=== PATIENT | male | born 1990 | race Caucasian/White ===

== ENCOUNTER 2019-07-04 00:38 | Inpatient (IN) ==
[2019-07-04] MEDS ORDERED: Mag Hydrox/Al Hydrox/Simeth 30 ML UDC PO PRN (00:45)
[2019-07-04] MEDS ORDERED: Ibuprofen 400 MG TABLET PO PRN (00:45)
[2019-07-04] MEDS ORDERED: MOM Conc 10 ML UD.LIQ PO PRN (00:45)
[2019-07-04] MEDS ORDERED: hydrOXYzine pamoate 25 MG CAPSULE PO PRN (00:45)
[2019-07-04] MEDS ORDERED: Nicotine 2 MG GUM BC PRN (00:45)
[2019-07-04] MEDS ORDERED: *HR* LORazepam 1 MG TABLET PO PRN (00:45)
[2019-07-04] MEDS ORDERED: *HR* LORazepam 2 MG/ML VIAL IM PRN (00:45)
[2019-07-04] MEDS ORDERED: Haloperidol Lactate 5 MG/ML VIAL IM PRN (00:45)
[2019-07-04] MEDS: QUEtiapine Fumarate 25 MG TABLET PO PRN ×2 (01:31→21:10)
[2019-07-04] MEDS: Azithromycin 250 MG TABLET PO SCH (09:52)
[2019-07-04] MEDS: predniSONE 1 MG TABLET PO SCH (09:52)
[2019-07-04] MEDS: FLUoxetine 20 MG CAPSULE PO SCH (12:18)
[2019-07-05] MEDS: Loratadine 10 MG TABLET PO SCH (09:12)
[2019-07-05] MEDS: predniSONE 1 MG TABLET PO SCH (09:12)
[2019-07-05] MEDS: Azithromycin 250 MG TABLET PO SCH (09:13)
[2019-07-05] MEDS: FLUoxetine 20 MG CAPSULE PO SCH (09:14)
[2019-07-05] MEDS: QUEtiapine Fumarate 25 MG TABLET PO PRN (20:51)
[2019-07-06] MEDS: predniSONE 1 MG TABLET PO SCH (08:50)
[2019-07-06] MEDS: FLUoxetine 20 MG CAPSULE PO SCH (08:50)
[2019-07-06] MEDS: Loratadine 10 MG TABLET PO SCH (08:51)
[2019-07-06] MEDS: Azithromycin 250 MG TABLET PO SCH (08:53)
[2019-07-06 08:54] VITALS: BP 142/83
[2019-07-06] MEDS ORDERED: FLU Vac QV 19-20 (6Month+)/PF 0.5 ML SYRINGE IM ONE (09:53)
== END 2019-07-06 11:30 | disposition home or self-care (01) | DRG 885 ==
LOC: 1ANU 00:38
PROVIDERS: ADMIT Psychiatry & Neurology Psychiatry; ATTEND Psychiatry & Neurology Psychiatry

== ENCOUNTER 2021-01-19 15:47 | Inpatient (IN) ==
[2021-01-19] MEDS ORDERED: Ibuprofen 400 MG TABLET PO STA (16:14)
[2021-01-19 16:17] LABS: Basophils # 0.1 K/mcL (0.0-0.2); Basophils % 0.6 %; Eosinophils # 0.1 K/mcL (0.0-0.6); Eosinophils % 1.6 %; Hematocrit 43.1 % (37.5-50.1); Hemoglobin 14.1 g/dL (12.9-16.9); Immature Granulocytes % 0.4 % (0-4); Lymphocytes # 2.5 K/mcL (0.6-4.6); Mean Corpuscular HGB Conc 32.7 g/dL (31.6-35.5); Mean Corpuscular Hemoglobin 28.3 pg (28.0-33.3); Mean Corpuscular Volume 86.5 fL (83.0-100.0); Mean Platelet Volume 10.9 fL (9.4-12.4); Monocytes # 0.5 K/mcL (0.0-1.3); Monocytes % 6.2 %; Neutrophils # 5.3 K/mcL (1.6-8.9); Platelet Count 249 K/mcL (140-400); Red Blood Count 4.98 M/mcL (4.19-5.50); Red Cell Distribution Width 12.3 % (11.5-14.5); Segmented Neutrophils % 62.2 %; White Blood Count 8.5 K/mcL (4.3-11.1)
[2021-01-19 16:33] LABS: Estimated Average Glucose 120 mg/dl; Hemoglobin A1C 5.8 %
[2021-01-19 16:36] LABS: Bilirubin,Urine Negative (Negative); Blood,Urine Negative (Negative); Clarity,Urine Clear (Clear); Color,Urine Light-Yellow (Yellow); Glucose,Urine (UA) Normal (Normal); Ketones,Urine Negative (Negative); Leukocyte Esterase,Urine Negative (Negative); Nitrite,Urine Negative (Negative); PH,Urine 5.5 pH Units (5.0-8.0); Protein,Urine Negative (Neg-Trace); Specific Gravity,Urine 1.024 (1.010-1.025); Urobilinogen,Urine Normal (Normal)
[2021-01-19 16:40] LABS: Acetaminophen < 10 mcg/mL (10-20); BUN/Creatinine Ratio 11 (6-26); Blood Urea Nitrogen 10 mg/dL (6-20); Calcium 9.6 mg/dL (8.6-10.3); Carbon Dioxide 29 mEq/L (23-29); Chloride 105 mEq/L (98-107); Chol/HDL Ratio 5.5 (0-4.9); Cholesterol 205 mg/dL (< 200); Ethanol < 10 mg/dL (Less than 10); Glucose 91 mg/dL (70-105); HDL Cholesterol 37 mg/dL (40-59); LDL Cholesterol,Calculated 143 mg/dL (< 100); Osmolality,Calculated 289 (280-300); Potassium 4.3 mEq/L (3.5-5.1); Salicylate < 2.5 mg/dL (15.0-30.0); Sodium 140 mEq/L (136-145); Triglycerides 127 mg/dL (< 150); eGFR For African Americans > 60 (> 60); eGFR For Non-African Americans > 60 (> 60)
[2021-01-19 16:47] LABS: Thyroid Stimulating Hormone 2.426 mcIU/mL (0.340-5.600)
[2021-01-19 16:56] LABS: Amphetamine Screen,Urine Negative ng/mL (Cutoff=1000); Barbiturate Screen,Urine Negative ng/mL (Cutoff=200); Benzodiazepines Screen,Urine Negative ng/mL (Cutoff=200); Cannabinoid Screen,Urine Negative ng/mL (Cutoff = 50); Cocaine Screen,Urine Negative ng/mL (Cutoff= 300); Opiate Screen,Urine Negative ng/mL (Cutoff=300); Phencyclidine Screen,Urine Negative ng/mL (Cutoff=25)
[2021-01-19 19:55] LABS: Influenza A PCR Negative (Negative); Influenza B PCR Negative (Negative); Resp. Syncytial Virus PCR Negative (Negative); SARS-CoV-2 by PCR (In House) Negative (Negative)
[2021-01-19] MEDS ORDERED: traZODone 50 MG TABLET PO PRN (20:23)
[2021-01-19] MEDS ORDERED: *HR* LORazepam 2 MG/ML VIAL IM PRN (20:23)
[2021-01-19] MEDS ORDERED: Ibuprofen 400 MG TABLET PO PRN (20:23)
[2021-01-19] MEDS ORDERED: hydrOXYzine pamoate 25 MG CAPSULE PO PRN (20:23)
[2021-01-19] MEDS ORDERED: *HR* LORazepam 1 MG TABLET PO PRN (20:23)
[2021-01-19] MEDS ORDERED: haloperidoL 5 MG TABLET PO PRN (20:23)
[2021-01-19] MEDS ORDERED: Haloperidol Lactate 5 MG/ML VIAL IM PRN (20:23)
[2021-01-19] MEDS ORDERED: Acetaminophen 325 MG TABLET PO PRN (20:23)
[2021-01-19] MEDS: Nicotine 2 MG GUM BC PRN (22:00)
[2021-01-20] MEDS ORDERED: MOM Conc 10 ML UD.LIQ PO PRN (09:36)
[2021-01-20] MEDS ORDERED: Mag Hydrox/Al Hydrox/Simeth 30 ML UDC PO PRN (09:36)
[2021-01-20] MEDS ORDERED: QUEtiapine Fumarate 25 MG TABLET PO PRN (14:06)
[2021-01-20] MEDS: Nicotine 2 MG GUM BC PRN (14:07)
[2021-01-20] MEDS ORDERED: Gabapentin 300 MG CAPSULE PO SCH (21:00)
[2021-01-20] MEDS ORDERED: QUEtiapine Fumarate 25 MG TABLET PO SCH (21:00)
[2021-01-21 09:56] VITALS: BP 108/65; PULSE 80; TEMP 99; O2SAT 97
== END 2021-01-21 14:20 | disposition home or self-care (01) | DRG 751 ==
LOC: EMEROOARM 15:47 → 1ANU 20:20
PROVIDERS: ADMIT Psychiatry & Neurology Psychiatry; ATTEND Psychiatry & Neurology Psychiatry